=== PATIENT | male | born 1965 | race Caucasian/White ===

== ENCOUNTER 2017-10-02 13:57 | Day surgery (SDC) | payer SELFPAY ==
[2017-10-02] MEDS ORDERED: CEFAZOLIN/SWI 1gm 1 GM/10 ML SYR ONE (14:28)
[2017-10-02] MEDS ORDERED: TETANUS & DIPHTHERIA TOX,ADULT 0.5 ML VIAL ONE (14:28)
[2017-10-02] MEDS ORDERED: MEPERIDINE HCL 25 MG/0.5 ML ONE (14:28)
[2017-10-02] MEDS ORDERED: PROMETHAZINE 25 MG/ML VIAL ONE (14:28)
[2017-10-02 14:33] LABS: Absolute Lymphocytes (CBC) 2.8 K/uL (0.7-4.9); Absolute Monocytes 0.6 K/uL (0.1-1.3); Absolute Neutrophil 7.7 K/uL (1.8-8.0); Basophils % 0.4 % (0-1.3); Eosinophils % 0.4 % (0-4.4); Hematocrit 44.6 % (39.6-49.0); Lymphocytes % 24.9 % (15.3-44.8); MCH 31.8 pg (27.0-35.0); MCV 91.9 fL (80-100); MPV 7.6 fL (7.6-11.3); Monocytes % 5.7 % (3.3-12.3); RBC Red Blood Cell Count 4.86 M/uL (4.33-5.43)
[2017-10-02 14:35] LABS: Protime INR 0.99
--- NOTE | 2017-10-02 14:47 | RAD REPORT ---
EXAM DESCRIPTION: RAD - Hand Left 2 View - 10/02/2017 2:32 pm CLINICAL HISTORY: Trauma, traumatic amputation distal second digit COMPARISON: None. FINDINGS: Soft tissue amputation of the tip of the left second digit is present with small portion o f the tuft also amputated. No retained foreign body seen. Bandaging could potentially obscure a minut e foreign body. There is no dislocation or periosteal reaction noted. No foreign body or other soft t issue abnormality. IMPRESSION: Traumatic amputation of the soft tissues and a portion of the tuft second digit.
--- NOTE | 2017-10-02 14:48 | ER ---
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 Transition of care: patient was not received from another setting of care. Onset of symptoms was October 02, 2017. Risk Assessment: Do you want to hurt yourself or someone else? Patient reports no desire to harm self or others. Initial Sepsis Screen: Does the patient meet any 2 criteria? No. Patient's initial sepsis screen is negative. Does the patient have a suspected source of infection? No. Patient's initial sepsis screen is negative. Care prior to arrival: None. 14:13 Method Of Arrival: Ambulatory ph 14:13 Acuity: FRANCISCO 3 ph Historical: - Allergies: 14:16 No Known Allergies; ph - Home Meds: 14:16 None [Active]; ph - PMHx: 14:16 None; ph - Immunization history:: Adult Immunizations unknown. - Social history:: Smoking status: Patient uses tobacco products, smokes one-half pack cigarettes per day. - Ebola Screening: : No symptoms or risks identified at this time. Screenin:27 Abuse screen: Denies threats or abuse. Denies injuries from another. Nutritional ph screening: No deficits noted. Tuberculosis screening: No symptoms or risk factors identified. Fall Risk None identified. Assessment: 14:23 General: Appears in no apparent distress. uncomfortable, Behavior is calm, cooperative, ph appropriate for age. Pain: Complains of pain in palmar aspect of distal phalanx of left index finger. Neuro: Level of Consciousness is awake, alert, obeys commands, Oriented to person, place, time, situation. Cardiovascular: Capillary refill < 3 seconds Patient's skin is warm and dry. Respiratory: Airway is patent Respiratory effort is even, unlabored, Respiratory pattern is regular, symmetrical. GI: No signs and/or symptoms were reported involving the gastrointestinal system. Derm: Skin is healthy with good turgor, Skin is pink, warm \\T\\ dry. Musculoskeletal: Circulation, motion, and sensation intact. Range of motion: intact in all extremities. Injury Description: Amputation sustained to palmar aspect of distal phalanx of left index finger is complete. 14:43 Reassessment: Patient appears in no apparent distress at this time. Patient and/or ph family updated on plan of care and expected duration. Pain level reassessed. Patient is alert, oriented x 3, equal unlabored respirations, skin warm/dry/pink. Pt taken to surgery, accompanied by family. Vital Signs: 14:02 BP 154 / 100; Pulse 83; Resp 19; Temp 98.9(O); Pulse Ox 99% on R/A; Weight 79.38 kg; dh3 Height 5 ft. 6 in. (167.64 cm); Pain 10/10; 14:30 Pulse 88; Resp 18; Pulse Ox 100% ; sv 14:02 Body Mass Index 28.25 (79.38 kg, 167.64 cm) 3 ED Course: 14:01 Patient arrived in ED. em1 14:04 Jayce Thomas PA is PHCP. jr8 14:04 Gato Barboza MD is Attending Physician. jr8 14:12 Gregoria Watson, TAMI is Primary Nurse. ph 14:15 Triage completed. ph 14:20 Initial lab(s) drawn, by wv, sent to lab. Inserted saline lock: 20 gauge in right 3 antecubital area, using aseptic technique. Blood collected. 14:23 Arm band placed on. ph 14:27 Patient has correct armband on for positive identification. Bed in low position. Call ph light in reach. Side rails up X 1. Pulse ox on. NIBP on. 14:32 X-ray completed. Portable x-ray completed in exam room. Patient tolerated procedure jb2 well. 14:33 XRAY Hand LEFT 2 View In Process Unspecified. EDMS 14:45 No provider procedures requiring assistance completed. Patient admitted, IV remains in sv place. intact. 14:47 Ozzy Timmons MD is Hospitalizing Provider. jr8 Administered Medications: 14:28 Drug: Phenergan 12.5 mg Route: IVP; Site: right antecubital; sv 14:52 Follow up: Response: No adverse reaction ph 14:30 Drug: Demerol 25 mg Route: IVP; Site: right antecubital; sv 14:52 Follow up: Response: No adverse reaction ph 14:32 Drug: Ancef 1 grams Route: IVPB; Site: right antecubital; sv 14:51 Follow up: Response: No adverse reaction; IV Status: Completed infusion ph 14:36 Drug: Tetanus-Diphtheria Toxoid Adult 0.5 ml {Equity Director: [employer]. Exp: sv 11/28/2019. Lot #: [id number]. } Route: IM; Site: right deltoid; 14:52 Follow up: Response: No adverse reaction ph Outcome: 14:48 Decision to Hospitalize by Provider. jr8 14:48 Admitted to OR accompanied by tech, family with patient, via wheelchair, with chart. ph 14:48 Condition: stable 14:48 Instructed on the need for admit. 14:52 Patient left the ED. ph Signatures: Dispatcher [employer] Samantha Figueroa RN RN Glen Mckeon Eric em1 Roszak, Josh, PA PA jr8 Gregoria Watson RN RN So Kline replaced by [facility]
--- NOTE | 2017-10-02 14:49 | EDPHYS ---
Physician Documentation [facility] Name: Ozzy Issa Age: 52 yrs Sex: Male : 1965 Arrival Date: 10/02/2017 Time: 14:01 Bed 3 Private MD: ED Physician Gato Barboza HPI: 10/02 14:32 This 52 yrs old Male presents to ER via Ambulatory with complaints of jr8 Amputation of digit. 14:32 The patient or guardian reports a laceration. The complaints affect the Distal aspect jr8 2nd digit left hand. Context: The problem was sustained outdoors, resulted from work accident. Onset: The symptoms/episode began/occurred acutely, today. Modifying factors: The symptoms are alleviated by nothing, the symptoms are aggravated by movement. Associated signs and symptoms: The patient has no apparent associated signs or symptoms. Severity of symptoms: At their worst the symptoms were moderate, in the emergency department the symptoms are unchanged. The patient has not experienced similar symptoms in the past. The patient has not recently seen a physician. Patient stated that he was working with table saw to [employer] quarter round. Stated that his finger was too close and amputated his finger. Patient has approximately 45 degree amputation of pad and distal digit noted to left hand 2nd digit . Historical: - Allergies: 14:16 No Known Allergies; ph - Home Meds: 14:16 None [Active]; ph - PMHx: 14:16 None; ph - Immunization history:: Adult Immunizations unknown. - Social history:: Smoking status: Patient uses tobacco products, smokes one-half pack cigarettes per day. - Ebola Screening: : No symptoms or risks identified at this time. ROS: 14:32 Eyes: Negative for injury, pain, redness, and discharge, ENT: Negative for injury, jr8 pain, and discharge, Neck: Negative for injury, pain, and swelling, Cardiovascular: Negative for chest pain, palpitations, and edema, Respiratory: Negative for shortness of breath, cough, wheezing, and pleuritic chest pain, Abdomen/GI: Negative for abdominal pain, nausea, vomiting, diarrhea, and constipation, Back: Negative for injury and pain, Skin: Negative for injury, rash, and discoloration, Neuro: Negative for headache, weakness, numbness, tingling, and seizure. 14:32 MS/extremity: Positive for laceration, pain, of the left hand. Exam: 14:32 Cardiovascular: Regular rate and rhythm with a normal S1 and S2. No gallops, murmurs, jr8 or rubs. Normal PMI, no JVD. No pulse deficits. Respiratory: Lungs have equal breath sounds bilaterally, clear to auscultation and percussion. No rales, rhonchi or wheezes noted. No increased work of breathing, no retractions or nasal flaring. Skin: Warm, dry with normal turgor. Normal color with no rashes, no lesions, and no evidence of cellulitis. Neuro: Awake and alert, GCS 15, oriented to person, place, time, and situation. Cranial nerves II-XII grossly intact. Motor strength 5/5 in all extremities. Sensory grossly intact. Cerebellar exam normal. Normal gait. 14:32 Musculoskeletal/extremity: Extremities: grossly normal except: noted in the 2nd digit left hand: Patient has 45 degree laceration/amputation of distal 2nd digit left hand. Part of nail still intact, ROM: intact in all extremities, Circulation is intact in all extremities. Sensation intact. Vital Signs: 14:02 BP 154 / 100; Pulse 83; Resp 19; Temp 98.9(O); Pulse Ox 99% on R/A; Weight 79.38 kg; dh3 Height 5 ft. 6 in. (167.64 cm); Pain 10/10; 14:30 Pulse 88; Resp 18; Pulse Ox 100% ; sv 14:02 Body Mass Index 28.25 (79.38 kg, 167.64 cm) dh3 MDM: 14:04 Patient medically screened. 8 14:05 ED course: Dr. Timmons consulted and will come in and see patient . jr8 14:46 Data reviewed: vital signs, nurses notes, lab test result(s), radiologic studies, plain jr8 films, and as a result, I will admit patient. Data interpreted: Pulse oximetry: on room air is 100 %. Interpretation: normal. Counseling: I had a detailed discussion with the patient and/or guardian regarding: the historical points, exam findings, and any diagnostic results supporting the discharge/admit diagnosis, lab results, radiology results, the need for further work-up and treatment in the hospital. 10/02 14:05 Order name: CBC with Diff jr8 10/02 14: Order name: Basic Metabolic Panel 10/02 14:05 Order name: PT-INR 10/02 14:06 Order name: XRAY Hand LEFT 2 View; Complete Time: 14:48 10/02 14:05 Order name: IV; Complete Time: 14:21 10/02 14:05 Order name: NPO; Complete Time: 14:21 Administered Medications: 14:28 Drug: Phenergan 12.5 mg Route: IVP; Site: right antecubital; sv 14:52 Follow up: Response: No adverse reaction ph 14:30 Drug: Demerol 25 mg Route: IVP; Site: right antecubital; sv 14:52 Follow up: Response: No adverse reaction ph 14:32 Drug: Ancef 1 grams Route: IVPB; Site: right antecubital; sv 14:51 Follow up: Response: No adverse reaction; IV Status: Completed infusion ph 14:36 Drug: Tetanus-Diphtheria Toxoid Adult 0.5 ml {Broker In Charge: [employer]. Exp: sv 11/28/2019. Lot #: [id number]. } Route: IM; Site: right deltoid; 14:52 Follow up: Response: No adverse reaction ph Disposition: 15:06 Co-signature as Attending Physician, Gato Barboza MD. rn Disposition: 10/02/17 14:48 Hospitalization ordered by Ozzy Timmons for Observation. Preliminary diagnosis is Complete traumatic amputation distal phalynx 2nd digit left hand. - Bed requested for Operating Room. - Status is Observation. ph - Condition is Stable. - Problem is new. - Symptoms have improved. UTI on Admission? No Signatures: Dispatcher [employer] Samantha Figueroa RN RN Gato Simmons MD MD rn Roszak, Josh, PA PA jr8 Gregoria Watson RN RN ph Corrections: (The following items were deleted from the chart) 14:52 14:48 Hospitalization Ordered by Ozzy Timmons MD for Observation. Preliminary ph diagnosis is Complete traumatic amputation distal phalynx 2nd digit left hand. Bed requested for Operating Room. Status is Observation. Condition is Stable. Problem is new. Symptoms have improved. UTI on Admission? No. jr8
[2017-10-02 14:55] LABS: Potassium 3.6 mmol/L (3.5-5.1)
[2017-10-02] MEDS ORDERED: Ringers Lactate 1,000 ML IV ONE (15:02)
[2017-10-02] MEDS ORDERED: LIDOCAINE 2% MPF 5 ML VIAL ONE (15:37)
[2017-10-02] MEDS ORDERED: PROPOFOL 200 MG/20 ML VIAL IV ONE (15:37)
[2017-10-02] MEDS ORDERED: FENTANYL CITR 100 MCG/2 ML ONE (15:37)
[2017-10-02] MEDS ORDERED: ONDANSETRON HCL 40 MG/20 ML VIAL ONE ×2 (15:59→16:00)
[2017-10-02] MEDS ORDERED: KETOROLAC 30 MG/ML INJ ONE (16:01)
[2017-10-02] MEDS ORDERED: DEXAMETHASONE 10 MG/ML VIAL ONE (16:01)
[2017-10-02] MEDS ORDERED: BUPIVACAINE 0.5% PF 10 ML VIAL ONE (16:20)
--- NOTE | 2017-10-02 16:57 | OP ---
Surgeon: Ozzy Timmons MD Inspection Supervisor: Dr. Francis. Preoperative Diagnosis: Amputated tip of the left index finger. Postoperative Diagnosis: Amputated tip of the left index finger. Procedure Performed: Debridement of skin and subcutaneous tissue, bone, flap closure. Anesthesia: General. Procedure In Detail: After satisfactory induction of general anesthesia, the left hand was prepped w ith Betadine scrub, Betadine paint, dry sterile drapes applied in the usual manner. The arm was elev ated with an Esmarch, tourniquet inflated to 250 mmHg. Hand was placed on [place] table. Scalpel wa s used to excise nail bed and then the bone was squared up with a bone cutter and then filed. Wound was jet lavaged and irrigated with about 500 cc of Betadine solution. Radial ulnar V-Y flaps outline d, advanced, and closed with 4-0 Prolene. Tourniquet released. Dressed with Xeroform and 2-inch Kli ng. The patient tolerated the procedure well and returned to recovery. MABEL/MORRO Voice ID: [id number] Report ID: [id number]
[2017-10-02] MEDS ORDERED: CODEINE 30MG/APAP 300MG TAB ONE (17:15)
[2017-10-02 18:04] VITALS: BP 134/76; TEMP 97.4; O2SAT 97
== END 2017-10-02 17:46 | disposition home or self-care (01) ==
LOC: ER 13:57 → OR 14:47 → ER 17:46 → OR 17:46
PROVIDERS: ATTEND Specialist
PROC: 0HXGXZZ Transfer Left Hand Skin, External Approach (ICD-10-PCS; principal; 2017-10-02 15:30)
DX: S68.121A Partial traumatic metacarpophalangeal amputation of left index finger, initial encounter (principal); W31.2XXA Contact with powered woodworking and forming machines, initial encounter; Y93.9 Activity, unspecified; Y92.69 Other specified industrial and construction area as the place of occurrence of the external cause; Y99.0 Civilian activity done for income or pay; Z23 Encounter for immunization; F17.210 Nicotine dependence, cigarettes, uncomplicated
CPT/HCPCS: 36415; 80048; 85025; 85610; 88304; 88311; 90714; 96365; 96375; 99285; J0690; J1100; J2175; J2405; J2550; J3010

== ENCOUNTER 2017-10-03 09:27 | Emergency (ER) | payer SELFPAY ==
--- NOTE | 2017-10-03 10:18 | ER ---
Nurse's Notes [facility] Name: Ozzy Issa Age: 52 yrs Sex: Male : 1965 Arrival Date: 10/03/2017 Time: 09:31 Bed 11 Private MD: None, None Diagnosis: Pain in hand and fingers Presentation: 10/03 09:49 Presenting complaint: Patient states: had surgery in left index finger yesterday by Dr. jane Timmons, was prescribed tylenol with codeine but would prefer a non-narcotic pain reliever bc he's a recovering alcoholic , went to Dr. Timmons's office but it was closed. Transition of care: patient was not received from another setting of care. Onset of symptoms was October 03, 2017. Risk Assessment: Do you want to hurt yourself or someone else? Patient reports no desire to harm self or others. Initial Sepsis Screen: Does the patient meet any 2 criteria? No. Patient's initial sepsis screen is negative. Does the patient have a suspected source of infection? No. Patient's initial sepsis screen is negative. Care prior to arrival: None. 09:49 Method Of Arrival: Ambulatory iw 09:49 Acuity: FRANCISCO 5 iw Triage Assessment: 11:17 General: Appears in no apparent distress. Behavior is calm, cooperative. iw Historical: - Allergies: 09:51 NKA; iw - Immunization history:: Adult Immunizations up to date. - Ebola Screening: : Patient negative for fever greater than or equal to 101.5 degrees Fahrenheit, and additional compatible Ebola Virus Disease symptoms Patient denies exposure to infectious person Patient denies travel to an Ebola-affected area in the 21 days before illness onset No symptoms or risks identified at this time. - Social history:: Smoking status: . Screenin:52 Abuse screen: Denies threats or abuse. Denies injuries from another. Nutritional iw screening: No deficits noted. Tuberculosis screening: No symptoms or risk factors identified. Fall Risk None identified. Assessment: 10:00 General: Appears in no apparent distress. Behavior is calm, cooperative. Pain: Denies iw pain. Neuro: Level of Consciousness is awake, alert, obeys commands, Oriented to person, place, time, Moves all extremities. Full function. Cardiovascular: Patient's skin is warm and dry. Musculoskeletal: Range of motion: limited in DIP of left index finger, PIP of left index finger and MCP of left index finger Swelling present in dorsal aspect of distal phalanx of left index finger and dorsal aspect of proximal phalanx of left index finger. 11:00 Respiratory: Airway is patent. Derm: Skin amputation noted to left index finder, iw sutures in place, mild bleeding noted, Xeroform dressing in place, wound cleaned and dressing changed. Vital Signs: 09:52 BP 122 / 90; Pulse 98; Resp 18 S; Temp 99.3; Pulse Ox 98% on R/A; Weight 72.57 kg; iw Height 5 ft. 8 in. (172.72 cm); Pain 0/10; 09:52 Body Mass Index 24.33 (72.57 kg, 172.72 cm) iw ED Course: 09:31 Patient arrived in ED. mr 09:31 None, None is Private Physician. mr 09:49 Suma García, RN is Primary Nurse. iw 09:51 Triage completed. iw 09:58 Marilyn Garcia FNP-C [facility]. snw 09:58 Gato Barboza MD is Attending Physician. snw 11:00 Patient did not have IV access during this emergency room visit. Wound care: to iw surgical repair of amputation of left index finger located on dorsal aspect of distal phalanx of left index finger was cleaned with Hibiclens, dressed with 4X4s, Kerlix, Vaseline gauze, Patient tolerated well. 11:00 Patient has correct armband on for positive identification. iw 11:17 No provider procedures requiring assistance completed. iw 11:17 Arm band placed on. iw Administered Medications: 10:55 Drug: TORadol 60 mg Route: IM; Site: left deltoid; iw 11:05 Follow up: Response: No adverse reaction iw Outcome: 10:18 Discharge ordered by . snw 11:14 Discharged to home ambulatory. iw 11:14 Condition: good 11:14 Discharge instructions given to patient, Instructed on discharge instructions, follow up and referral plans. Demonstrated understanding of wound care. 11:17 Patient left the ED. iw Signatures: Marilyn Garcia FNP-C FNP-Radha Wyatt mr Suma García, RN RN iw
--- NOTE | 2017-10-03 10:19 | EDPHYS ---
Physician Documentation [facility] Name: Ozzy Issa Age: 52 yrs Sex: Male : 1965 Arrival Date: 10/03/2017 Time: 09:31 Bed 11 Private MD: None, None ED Physician Gato Barboza HPI: 10/03 10:33 This 52 yrs old Male presents to ER via Ambulatory with complaints of RX. snw 10:33 The patient or guardian reports pain. The complaints affect the dorsal aspect of distal snw phalanx of left index finger and left index fingernail. Context: The problem was sustained at home, resulted from distal fingertip amputation. Onset: The symptoms/episode began/occurred suddenly, yesterday. Associated signs and symptoms: The patient has no apparent associated signs or symptoms. Severity of symptoms: At their worst the symptoms were moderate. The patient has not experienced similar symptoms in the past. Surgical repair per Dr. Timmnos yest. Request pain medication that is non-narcotic as he is recovering from ETOH addiction. Historical: - Allergies: 09:51 NKA; iw - Immunization history:: Adult Immunizations up to date. - Ebola Screening: : Patient negative for fever greater than or equal to 101.5 degrees Fahrenheit, and additional compatible Ebola Virus Disease symptoms Patient denies exposure to infectious person Patient denies travel to an Ebola-affected area in the 21 days before illness onset No symptoms or risks identified at this time. - Social history:: Smoking status: . ROS: 10:31 Constitutional: Negative for fever, chills, and weight loss, Eyes: Negative for injury, snw pain, redness, and discharge, ENT: Negative for injury, pain, and discharge, Neck: Negative for injury, pain, and swelling, Cardiovascular: Negative for chest pain, palpitations, and edema, Respiratory: Negative for shortness of breath, cough, wheezing, and pleuritic chest pain, Abdomen/GI: Negative for abdominal pain, nausea, vomiting, diarrhea, and constipation, Back: Negative for injury and pain, : Negative for injury, bleeding, discharge, and swelling, Skin: Negative for injury, rash, and discoloration, Neuro: Negative for headache, weakness, numbness, tingling, and seizure. 10:31 MS/extremity: Positive for injury or acute deformity, recent surgical revision of fingertip amputation, requests non-narcotic pain medication. Exam: 10:26 Constitutional: This is a well developed, well nourished patient who is awake, alert, snw and in no acute distress. Head/Face: Normocephalic, atraumatic. Eyes: Pupils equal round and reactive to light, extra-ocular motions intact. Lids and lashes normal. Conjunctiva and sclera are non-icteric and not injected. Cornea within normal limits. Periorbital areas with no swelling, redness, or edema. ENT: Nares patent. No nasal discharge, no septal abnormalities noted. Tympanic membranes are normal and external auditory canals are clear. Oropharynx with no redness, swelling, or masses, exudates, or evidence of obstruction, uvula midline. Mucous membranes moist. Neck: Trachea midline, no thyromegaly or masses palpated, and no cervical lymphadenopathy. Supple, full range of motion without nuchal rigidity, or vertebral point tenderness. No Meningismus. Chest/axilla: Normal chest wall appearance and motion. Nontender with no deformity. No lesions are appreciated. Cardiovascular: Regular rate and rhythm with a normal S1 and S2. No gallops, murmurs, or rubs. Normal PMI, no JVD. No pulse deficits. Respiratory: Lungs have equal breath sounds bilaterally, clear to auscultation and percussion. No rales, rhonchi or wheezes noted. No increased work of breathing, no retractions or nasal flaring. Abdomen/GI: Soft, non-tender, with normal bowel sounds. No distension or tympany. No guarding or rebound. No evidence of tenderness throughout. Back: No spinal tenderness. No costovertebral tenderness. Full range of motion. Skin: Warm, dry with normal turgor. Normal color with no rashes, no lesions, and no evidence of cellulitis. Neuro: Awake and alert, GCS 15, oriented to person, place, time, and situation. Cranial nerves II-XII grossly intact. Motor strength 5/5 in all extremities. Sensory grossly intact. Cerebellar exam normal. Normal gait. 10:26 Musculoskeletal/extremity: Extremities: grossly normal except: pain, Circulation is intact in all extremities. the distal left index finger amp yesterday, bandage intact Sensation intact. Vital Signs: 09:52 BP 122 / 90; Pulse 98; Resp 18 S; Temp 99.3; Pulse Ox 98% on R/A; Weight 72.57 kg; iw Height 5 ft. 8 in. (172.72 cm); Pain 0/10; 09:52 Body Mass Index 24.33 (72.57 kg, 172.72 cm) iw MDM: 09:59 Patient medically screened. snw 10:28 Data reviewed: vital signs, nurses notes. Counseling: I had a detailed discussion with snw the patient and/or guardian regarding: the historical points, exam findings, and any diagnostic results supporting the discharge/admit diagnosis, to return to the emergency department if symptoms worsen or persist or if there are any questions or concerns that arise at home. Special discussion: I have referred the patient to see his PCP for further evaluation of high blood pressure. Based on the history and exam findings, there is no indication for further emergent testing or inpatient evaluation. I discussed with the patient/guardian the need to see the hand specialist for further evaluation of the symptoms. I discussed with the patient/guardian the need to see the primary care provider for further evaluation of the symptoms. ED course: pt without ETOH x 2 years, does not want to jeopardize recovery and requests non-narcotic pain medication. 10/03 10:17 Order name: Wound Care; Complete Time: 11:05 snw 10/03 10:17 Order name: Wound dressing; Complete Time: 11:05 snw Administered Medications: 10:55 Drug: TORadol 60 mg Route: IM; Site: left deltoid; iw 11:05 Follow up: Response: No adverse reaction iw Disposition: 15:27 Co-signature as Attending Physician, Gato Barboza MD. rn Disposition: 10/03/17 10:18 Discharged to Home. Impression: Pain in hand and fingers. - Condition is Stable. - Discharge Instructions: Crush Injury, Fingers or Toes. - Prescriptions for Diclofenac Sodium 75 mg Oral Tablet Sustained Release - take 1 tablet by ORAL route 2 times per day; 30 tablet. - Medication Reconciliation Form, Thank You Letter, Antibiotic Education, Prescription Opioid Use form. - Follow up: Private Physician; When: 2 - 3 days; Reason: Recheck today's complaints, Continuance of care, Re-evaluation by your physician. Follow up: Emergency Department; When: As needed; Reason: Worsening of condition. - Notes: Please continue antibiotics Signatures: Marilyn Garcia SCRAPER HAND-C SCRAPER HAND-Csnw Suma García RN RN iw Gato Barboza MD MD furnace keeper: (The following items were deleted from the chart) 11:17 10:18 10/03/2017 10:18 Discharged to Home. Impression: Pain in hand and fingers. iw Condition is Stable. Forms are Medication Reconciliation Form, Thank You Letter, Antibiotic Education, Prescription Opioid Use. Follow up: Private Physician; When: 2 - 3 days; Reason: Recheck today's complaints, Continuance of care, Re-evaluation by your physician. Follow up: Emergency Department; When: As needed; Reason: Worsening of condition. snw
[2017-10-03] MEDS ORDERED: KETOROLAC 30 MG/ML INJ ONE (10:51)
[2017-10-03 11:31] VITALS: BP 122/90; TEMP 99.3; O2SAT 98
== END 2017-10-03 11:17 | disposition home or self-care (01) ==
LOC: ER 09:27
DX: M79.645 Pain in left finger(s) (principal)
CPT/HCPCS: 96372; 99283

== ENCOUNTER 2018-10-02 16:31 | Emergency (ER) | payer SELFPAY ==
[2018-10-02 17:26] LABS: Urine Blood TRACE (NEG); Urine Glucose NEGATIVE (NEG); Urine Protein NEGATIVE (NEG); Urine Specific Gravity 1.025 (1.005-1.030); Urine pH 5.5 (5.0-7.0)
[2018-10-02] MEDS ORDERED: NA CHLORIDE 0.9% 1,000 ML ONE (17:38)
[2018-10-02] MEDS ORDERED: KETOROLAC 30 MG/ML INJ ONE (17:38)
[2018-10-02 17:39] LABS: Urine Bacteria <20 /HPF (NONE SEEN); Urine Culture Reflex Order NOT NEEDED; Urine RBC NONE SEEN /HPF (NONE SEEN)
[2018-10-02 17:43] LABS: Absolute Lymphocytes (CBC) 3.1 K/uL (0.7-4.9); Basophils % 1.3 % (0-1.3); Eosinophils % 1.4 % (0-4.4); Hematocrit 44.2 % (39.6-49.0); Lymphocytes % 36.3 % (15.3-44.8); MPV 7.4 fL (7.6-11.3); Monocytes % 8.2 % (3.3-12.3); RBC Red Blood Cell Count 4.84 M/uL (4.33-5.43)
[2018-10-02 18:00] LABS: Bilirubin Direct 0.1 mg/dL (0-0.2); Bilirubin Total 0.3 mg/dL (0.2-1.0); Potassium 4.1 mmol/L (3.5-5.1); Protein, Total 7.6 g/dL (6.4-8.2)
--- NOTE | 2018-10-02 18:42 | RAD REPORT ---
EXAM DESCRIPTION: CT - Stone Protocol - 10/02/2018 6:30 pm CLINICAL HISTORY: Left flank pain COMPARISON: CT study February 2015 TECHNIQUE: Axial 5 mm thick images were obtained without oral or IV contrast. The [id number] span s the entirety of the system partially obscuring uppermost abdomen and lung bases. All CT scans are performed using dose optimization technique as appropriate and may include automated exposure control or mA/KV adjustment according to patient size. FINDINGS: No hydronephrosis is present. In the distal left ureter a few cm from the bladder there is a questionable 1 millimeter calcification. No right-sided hydronephrosis. No other possible obstruct ing or nonobstructing calculus seen. No suspicious renal masses. Isodense masses and pyelonephritis a re not excluded on a stone protocol CT scan. No urinary bladder suspicious finding. No significant ad renal finding. There is questionable minimal edema of the left kidney. Imaged portions of the liver, spleen and pancreas show no suspicious findings on non-contrast imaging . Gallbladder is contracted. No biliary tree dilatation. No suspicious bowel findings. No mass or bulky lymphadenopathy. Small fat only inguinal hernias are present. No free air, free flui d or inflammatory stranding. No significant bony abnormality. IMPRESSION: No hydronephrosis is present. There is a questionable 1 millimeter distal left ureteral calculus. No other obstructing or nonobstructing calculi. Isodense masses and pyelonephritis are not excluded on stone protocol technique.
--- NOTE | 2018-10-02 19:07 | EDPHYS ---
Physician Documentation [facility] Name: Ozzy Issa Age: 53 yrs Sex: Male : 1965 Arrival Date: 10/02/2018 Time: 16:33 Bed 19 Private MD: ED Physician Juan Sandhu HPI: 10/02 17:15 This 53 yrs old Male presents to ER via Ambulatory with complaints of Flank cp Pain. 17:15 The patient complains of pain in the left mid back. The pain radiates to the abdomen. cp Onset: The symptoms/episode began/occurred 4 day(s) ago. Modifying factors: the symptoms are aggravated by nothing. Associated signs and symptoms: Pertinent negatives: diarrhea, dysuria, fever, urinary frequency, pain radiating to the lower extremities, vomiting. Severity of pain: in the emergency department the pain is unchanged despite home interventions. Historical: - Allergies: 16:54 NKA; hb - Home Meds: 16:54 None [Active]; hb - PMHx: 16:54 None; hb - PSHx: 16:54 Hernia repair; hb - Immunization history:: Adult Immunizations up to date. - Social history:: Smoking status: Patient uses tobacco products, smokes one pack cigarettes per day. - Ebola Screening: : No symptoms or risks identified at this time. ROS: 17:20 Constitutional: Negative for body aches, chills, fever, poor PO intake. cp 17:20 Eyes: Negative for injury, pain, redness, and discharge. cp 17:20 ENT: Negative for drainage from ear(s), ear pain, sore throat, difficulty swallowing, difficulty handling secretions. 17:20 Cardiovascular: Negative for chest pain, palpitations. 17:20 Respiratory: Negative for cough, shortness of breath, wheezing. 17:20 Abdomen/GI: Negative for vomiting, diarrhea, constipation, black/tarry stool, rectal bleeding. 17:20 Back: Positive for flank pain, on the left. 17:20 : Negative for urinary symptoms, hematuria, testicular pain 17:20 Skin: Negative for cellulitis, rash. 17:20 Neuro: Negative for altered mental status, dizziness, headache, weakness. 17:20 All other systems are negative. Exam: 17:30 Constitutional: The patient appears in no acute distress, alert, awake, non-toxic, well cp developed, well nourished. 17:30 Head/Face: Normocephalic, atraumatic. cp 17:30 Eyes: Periorbital structures: appear normal, Conjunctiva: normal, no exudate, no injection, Sclera: no appreciated abnormality, Lids and lashes: appear normal, bilaterally. 17:30 ENT: External ear(s): are unremarkable, Nose: is normal, Mouth: Lips: moist, Oral mucosa: pink and intact, moist, Posterior pharynx: is normal, airway is patent, no erythema, no exudate. 17:30 Chest/axilla: Inspection: normal, Palpation: is normal, no crepitus, no tenderness. 17:30 Cardiovascular: Rate: normal, Rhythm: regular, JVD: is not appreciated. 17:30 Respiratory: the patient does not display signs of respiratory distress, Respirations: normal, no use of accessory muscles, no retractions, no splinting, no tachypnea, labored breathing, is not present, Breath sounds: are clear throughout, no decreased breath sounds, no stridor, no wheezing. 17:30 Abdomen/GI: Inspection: abdomen appears normal, Bowel sounds: active, all quadrants, Palpation: soft, in all quadrants, mild abdominal tenderness, in the left upper quadrant and left lower quadrant, rebound tenderness, is not appreciated, voluntary guarding, is not appreciated, involuntary guarding, is not appreciated. 17:30 Back: pain, that is mild, of the left mid back, ROM is normal. 17:30 Skin: no rash present. 17:30 Neuro: Orientation: to person, place \T\ time. Mentation: is normal, Motor: moves all fours, strength is normal. Vital Signs: 16:53 BP 120 / 82; Pulse 75; Resp 16; Temp 98.7; Pulse Ox 99% on R/A; Weight 77.11 kg; Height hb 5 ft. 6 in. (167.64 cm); Pain 8/10; 18:20 BP 154 / 80; Pulse 99; Resp 18; Pulse Ox 99% on R/A; Pain 2/10; em 16:53 Body Mass Index 27.44 (77.11 kg, 167.64 cm) hb MDM: 16:58 Patient medically screened. reina 18:00 Differential diagnosis: nephrolithiasis, pyelonephritis, UTI, diverticulitis, cp pancreatitis, ruptured AAA, dissecting AAA. 19:05 Data reviewed: vital signs, nurses notes, lab test result(s), radiologic studies, CT cp scan. 19:05 Counseling: I had a detailed discussion with the patient and/or guardian regarding: the cp historical points, exam findings, and any diagnostic results supporting the discharge/admit diagnosis, lab results, radiology results, to return to the emergency department if symptoms worsen or persist or if there are any questions or concerns that arise at home. Response to treatment: the patient's symptoms have markedly improved after treatment, and as a result, I will discharge patient. 10/02 17:10 Order name: Urine Dipstick--Ancillary (enter results); Complete Time: 18:18 dh3 10/02 17:15 Order name: Urine Microscopic Only; Complete Time: 18:18 cp 10/02 17:15 Order name: Basic Metabolic Panel; Complete Time: 18:18 cp 10/02 17:15 Order name: CBC with Diff; Complete Time: 18:18 cp 10/02 17:15 Order name: Creatinine for Radiology; Complete Time: 18:18 cp 10/02 17:15 Order name: Hepatic Function; Complete Time: 18:18 cp 10/02 17:15 Order name: Lipase; Complete Time: 18:18 cp 10/02 17:15 Order name: IV Saline Lock; Complete Time: 18:00 cp 10/02 17:15 Order name: Labs collected and sent; Complete Time: 18:00 cp 10/02 18:18 Order name: CT Stone Protocol; Complete Time: 18:52 cp 10/02 18:54 Order name: PO challenge; Complete Time: 19:12 cp Administered Medications: 17:35 Drug: NS 0.9% 1000 ml Route: IV; Rate: 1 bolus; Site: right forearm; em 19:12 Follow up: IV Status: Completed infusion; IV Intake: 1000ml ak1 17:35 Drug: TORadol 30 mg Route: IVP; Site: right forearm; iw 19:12 Follow up: Response: No adverse reaction; Pain is decreased ak1 19:12 Drug: Flomax 0.4 mg Route: PO; ak1 19:13 Follow up: Response: No adverse reaction; Medication administered at discharge. ak1 Disposition: 10/02/18 19:06 Discharged to Home. Impression: Calculus of ureter - left. - Condition is Stable. - Discharge Instructions: Kidney Stones. - Prescriptions for Tylenol- Codeine #3 300-30 mg Oral Tablet - take 2 tablets by ORAL route every 6 hours As needed; 20 tablet. Zofran 4 mg Oral Tablet - take 1 tablet by ORAL route every 12 hours As needed; 20 tablet. Flomax 0.4 mg Oral Capsule, Sust. Release 24 hr - take 1 capsule by ORAL route once daily As needed 1/2 hour following the same meal each day; 5 capsule. - Medication Reconciliation Form, Thank You Letter, Antibiotic Education, Prescription Opioid Use form. - Follow up: John Edwards MD; When: 2 - 3 days; Reason: pain continues. - Problem is new. - Symptoms have improved. Addendum: 10/07/2018 16:40 Co-signature as Attending Physician, Juan Sandhu MD I agree with the assessment and c villeda plan of care. Signatures: Dispatcher [employer] EDTana Yeh RN RN aa1 Juan Sandhu MD MD cha Munoz, Edgar, RACE RELATIONS PROFESSOR RACE RELATIONS PROFESSOR em Suma García RN RN Marnie Rubi RN RN ak1 Juan Mayorga PA PA cp Bee Odom, RN RN Corrections: (The following items were deleted from the chart) 10/02 19:26 19:06 10/02/2018 19:06 Discharged to Home. Impression: Calculus of ureter - left. aa1 Condition is Stable. Forms are Medication Reconciliation Form, Thank You Letter, Antibiotic Education, Prescription Opioid Use. Follow up: John Edwards; When: 2 - 3 days; Reason: pain continues. Problem is new. Symptoms have improved. cp
--- NOTE | 2018-10-02 19:07 | ER ---
Nurse's Notes [facility] Name: Ozzy Issa Age: 53 yrs Sex: Male : 1965 Arrival Date: 10/02/2018 Time: 16:33 Bed 19 Private MD: Diagnosis: Calculus of ureter-left Presentation: 10/02 16:52 Presenting complaint: Left flank pain x 4 days. Denies fever/urinary s/s. Transition of hb care: patient was not received from another setting of care. Onset of symptoms was September 28, 2018. Risk Assessment: Do you want to hurt yourself or someone else? Patient reports no desire to harm self or others. Care prior to arrival: None. 16:52 Method Of Arrival: Ambulatory hb 16:52 Acuity: FRANCISCO 3 hb 17:08 Initial Sepsis Screen: Does the patient meet any 2 criteria? No. Patient's initial em sepsis screen is negative. Does the patient have a suspected source of infection? No. Patient's initial sepsis screen is negative. Historical: - Allergies: 16:54 NKA; hb - Home Meds: 16:54 None [Active]; hb - PMHx: 16:54 None; hb - PSHx: 16:54 Hernia repair; hb - Immunization history:: Adult Immunizations up to date. - Social history:: Smoking status: Patient uses tobacco products, smokes one pack cigarettes per day. - Ebola Screening: : No symptoms or risks identified at this time. Screenin:56 Abuse screen: Denies threats or abuse. Nutritional screening: No deficits noted. em Tuberculosis screening: No symptoms or risk factors identified. Fall Risk None identified. Assessment: 17:08 General: Appears in no apparent distress. comfortable, Behavior is calm, cooperative, em Denies fever. Pain: Complains of pain in right mid back Pain currently is 8 out of 10 on a pain scale. Neuro: Level of Consciousness is awake, alert, obeys commands, Oriented to person, place, time, situation, Appropriate for age. Cardiovascular: Capillary refill < 3 seconds Patient's skin is warm and dry. Respiratory: Airway is patent Respiratory effort is even, unlabored, Respiratory pattern is regular, symmetrical. GI: Abdomen is flat, Bowel sounds present X 4 quads. Reports nausea, Patient currently denies vomiting. : Urine is clear, Denies burning with urination, pain. Derm: Skin is intact, is healthy with good turgor, Skin is pink, warm \T\ dry. Musculoskeletal: Capillary refill < 3 seconds, Range of motion: intact in all extremities. 17:30 Reassessment: Patient appears in no apparent distress at this time. I agree with above iw assessment by Ehsan Jesus LVN. 18:20 Reassessment: Patient appears in no apparent distress at this time. Patient and/or em family updated on plan of care and expected duration. Pain level reassessed. Patient is alert, oriented x 3, equal unlabored respirations, skin warm/dry/pink. rates pain 2/10 Patient states feeling better. 19:13 General: Appears in no apparent distress. comfortable, Behavior is calm, cooperative. ak1 Pain: Denies pain. Neuro: No deficits noted. Cardiovascular: No deficits noted. Respiratory: No deficits noted. GI: No signs and/or symptoms were reported involving the gastrointestinal system. : Denies burning with urination. EENT: No deficits noted. Derm: No signs and/or symptoms reported regarding the dermatologic system. Musculoskeletal: No signs and/or symptoms reported regarding the musculoskeletal system. 19:25 Reassessment: Patient appears in no apparent distress at this time. Patient is alert, aa1 oriented x 3, equal unlabored respirations, skin warm/dry/pink. Discussed d/c \T\ f/u instructions with pt \T\ spouse; denies questions or concerns at this time Patient states feeling better. Vital Signs: 16:53 BP 120 / 82; Pulse 75; Resp 16; Temp 98.7; Pulse Ox 99% on R/A; Weight 77.11 kg; Height hb 5 ft. 6 in. (167.64 cm); Pain 8/10; 18:20 BP 154 / 80; Pulse 99; Resp 18; Pulse Ox 99% on R/A; Pain 2/10; em 16:53 Body Mass Index 27.44 (77.11 kg, 167.64 cm) hb ED Course: 16:33 Patient arrived in ED. rg4 16:53 Triage completed. hb 16:54 Arm band placed on right wrist. hb 16:55 [facility]. cp 16:55 Juan Sandhu MD is Attending Physician. cp 16:56 Ehsan Jesus LVN is Primary Nurse. em 16:56 Patient has correct armband on for positive identification. Call light in reach. Side em rails up X2. Pulse ox on. NIBP on. 17:05 Urine collected: clean catch specimen, cloudy, juan jose colored. jb1 18:30 CT Stone Protocol In Process Unspecified. EDMS 19:05 John Edwards MD is Referral Physician. cp 19:14 No provider procedures requiring assistance completed. ak1 19:25 IV discontinued, intact, bleeding controlled, No redness/swelling at site. Pressure aa1 dressing applied. Administered Medications: 17:35 Drug: NS 0.9% 1000 ml Route: IV; Rate: 1 bolus; Site: right forearm; em 19:12 Follow up: IV Status: Completed infusion; IV Intake: 1000ml ak1 17:35 Drug: TORadol 30 mg Route: IVP; Site: right forearm; iw 19:12 Follow up: Response: No adverse reaction; Pain is decreased ak1 19:12 Drug: Flomax 0.4 mg Route: PO; ak1 19:13 Follow up: Response: No adverse reaction; Medication administered at discharge. ak1 Intake: 19:12 IV: 1000ml; Total: 1000ml. ak1 Outcome: 19:06 Discharge ordered by MD. cp 19:25 Discharged to home ambulatory, with significant other. aa1 19:25 Condition: good 19:25 Discharge instructions given to patient, significant other, Instructed on discharge instructions, follow up and referral plans. medication usage, Demonstrated understanding of instructions, follow-up care, medications, Prescriptions given X 3. 19:26 Patient left the ED. aa1 Signatures: Dispatcher [employer] EDNE Prakash Carey jb1 Tana Hannah RN RN aa1 Ehsan Jesus LVN LVN em Suma García RN RN iw Juan Jose Rubi RN RN ak1 Juan Mayorga PA PA cp Bee Odom, RN Cheli Levine rg4
[2018-10-02] MEDS ORDERED: TAMSULOSIN 0.4 MG SR CAP ONE (19:17)
[2018-10-02 20:07] VITALS: TEMP 98.7; O2SAT 99
[2018-10-02 20:08] VITALS: BP 154/80
== END 2018-10-02 19:26 | disposition home or self-care (01) ==
LOC: ER 16:31
DX: N20.1 Calculus of ureter (principal); F17.210 Nicotine dependence, cigarettes, uncomplicated
CPT/HCPCS: 36415; 74176; 76377; 80048; 80076; 81003; 81015; 83690; 85025; 96361; 96374; 99284; J7030

== ENCOUNTER 2019-08-24 13:14 | Emergency (ER) | payer SELFPAY ==
--- NOTE | 2019-08-24 14:36 | RAD REPORT ---
EXAM DESCRIPTION: RAD - Chest Single View - 08/24/2019 2:00 pm CLINICAL HISTORY: DYSPNEA Chest pain. COMPARISON: <Comparisons> FINDINGS: Portable technique limits examination quality. The lungs are grossly clear. The heart is normal in size. No displaced fractures. IMPRESSION: No acute intrathoracic process suspected.
[2019-08-24 14:41] LABS: Absolute Lymphocytes (CBC) 2.5 K/uL (0.7-4.9); Basophils % 0.9 % (0-1.3); Hematocrit 46.6 % (39.6-49.0); Lymphocytes % 22.1 % (15.3-44.8); MPV 7.8 fL (7.6-11.3); RBC Red Blood Cell Count 5.07 M/uL (4.33-5.43)
[2019-08-24 14:55] LABS: ALT/SGPT 28 U/L (12-78); Alkaline Phosphatase 63 U/L (45-117); BUN Blood Urea Nitrogen 11 mg/dL (7-18); Bicarbonate 28 mmol/L (21-32); Bilirubin Direct < 0.1 mg/dL (0-0.2); Bilirubin Total 0.3 mg/dL (0.2-1.0); Glucose Level 94 mg/dL (74-106); NT PRO-BNP 62 pg/mL (<125); Protein, Total 7.8 g/dL (6.4-8.2); Sodium Level 140 mmol/L (136-145); Troponin (Emerg Dept Use Only) < 0.02 ng/mL (0.0-0.045)
[2019-08-24] MEDS ORDERED: KETOROLAC 30 MG/ML INJ ONE (15:03)
[2019-08-24 15:23] LABS: AST/SGOT 28 U/L (15-37); Magnesium 1.8 mg/dL (1.8-2.4); Potassium 4.4 mmol/L (3.5-5.1)
[2019-08-24 16:31] VITALS: TEMP 99
[2019-08-24 16:50] VITALS: BP 110/77; O2SAT 98
--- NOTE | 2019-08-25 12:53 | EKG ---
Test Date: 2019-08-24 Test Time: 14:08:48 Teasel Setter: MAXWELL MEASUREMENT RESULTS: Intervals: Rate: 70 UT: 170 QRSD: 118 QT: 376 QTc: 406 [place]: P: 49 UT: 170 QRS: 24 T: 73 INTERPRETIVE STATEMENTS: Normal sinus rhythm Right bundle branch block Abnormal ECG Compared to ECG 11/27/2012 12:21:00 Right bundle-branch block now present Incomplete right bundle-branch block no longer present Electronically Signed On 08-25-19 12:50:38 CDT by Carter Hamilton
--- NOTE | 2019-08-30 13:24 | ER ---
Nurse's Notes [facility] Name: Ozzy Issa Age: 53 yrs Sex: Male : 1965 Arrival Date: 08/24/2019 Time: 13:16 Bed 14 Private MD: Diagnosis: Chest pain, unspecified Presentation: 08/23 13:25 Chief complaint: Patient states: pain started in middle upper back , radiates around to iw front of chest, tender to touch, thinks it might be shingles, has rash under right armpit , started 4 days ago. Coronavirus screen: Proceed with normal triage. Patient denies a cough. Patient denies shortness of breath or difficulty breathing. Patient denies measured and/or subjective temperature greater than 100.4F prior to today's visit. Patient denies travel on a cruise ship or to a country the [facility] currently lists as an affected area. Patient denies contact with known and/or suspected case of COVID-19. Ebola Screen: Patient negative for fever greater than or equal to 101.5 degrees Fahrenheit, and additional compatible Ebola Virus Disease symptoms Patient denies exposure to infectious person. Patient denies travel to an Ebola-affected area in the 21 days before illness onset. No symptoms or risks identified at this time. Initial Sepsis Screen: Does the patient meet any 2 criteria? No. Patient's initial sepsis screen is negative. Does the patient have a suspected source of infection? No. Patient's initial sepsis screen is negative. Risk Assessment: Do you want to hurt yourself or someone else? Patient reports no desire to harm self or others. Onset of symptoms was August 20, 2019. 13:25 Method Of Arrival: Ambulatory iw 13:25 Acuity: FRANCISCO 3 iw Triage Assessment: 13:30 General: Appears in no apparent distress. comfortable, Behavior is calm, cooperative, bp appropriate for age. Pain: Complains of pain in chest. EENT: No deficits noted. Neuro: No deficits noted. Cardiovascular: Rhythm is sinus rhythm. Respiratory: No deficits noted. GI: No signs and/or symptoms were reported involving the gastrointestinal system. : No signs and/or symptoms were reported regarding the genitourinary system. Derm: No deficits noted. Musculoskeletal: No deficits noted. Historical: - Allergies: 13:27 NKA; iw - Home Meds: 13:27 None [Active]; iw - PMHx: 13:27 None; iw - PSHx: 13:27 Hernia repair; iw - Immunization history:: Adult Immunizations. - Social history:: Smoking status: Patient reports the use of cigarette tobacco products, smokes one pack cigarettes per day. Screenin:30 Abuse screen: Denies threats or abuse. Denies injuries from another. Nutritional bp screening: No deficits noted. Tuberculosis screening: No symptoms or risk factors identified. Fall Risk None identified. Assessment: 13:30 General: SEE TRIAGE NOTE. bp 14:59 Reassessment: ALL CURRENT ORDERS COMPLETED. PT ASYMPTOMATIC AT THIS TIME, VS STABLE ON bp MONITOR. 16:14 Reassessment: PT D/C HOME AMBULATORY, DX WITH NONSPECIFIC CHEST PAIN. bp Vital Signs: 13:25 BP 129 / 93; Pulse 89; Resp 16; Temp 99.0; Pulse Ox 99% on R/A; Weight 72.57 kg; Height iw 5 ft. 6 in. (167.64 cm); 14:47 BP 122 / 87; Pulse 70; Resp 16; Pulse Ox 99% ; bp 15:32 BP 110 / 77; Pulse 64; Resp 16; Pulse Ox 98% ; bp 13:25 Body Mass Index 25.82 (72.57 kg, 167.64 cm) iw ED Course: 13:16 Patient arrived in ED. mr 13:27 Triage completed. iw 13:27 Arm band placed on. iw 13:29 Primo Hatch, RN is Primary Nurse. bp 13:30 Patient has correct armband on for positive identification. Bed in low position. Call bp light in reach. Side rails up X2. Pulse ox on. NIBP on. 13:32 Jayce Thomas PA is PHCP. jr8 13:32 Gato Barboza MD is Attending Physician. jr8 14:01 XRAY Chest (1 view) In Process Unspecified. EDMS 14:12 Initial lab(s) drawn, by me, sent to lab. Inserted saline lock: 22 gauge in right kj1 antecubital area, using aseptic technique. Blood collected. 16:14 No provider procedures requiring assistance completed. IV discontinued, intact, bp bleeding controlled, No redness/swelling at site. Pressure dressing applied. Patient maintains SpO2 saturation greater than 95% on room air. Administered Medications: 14:59 Drug: TORadol - Ketorolac 15 mg Route: IVP; Site: right antecubital; bp 15:33 Follow up: Response: No adverse reaction; Pain is decreased bp Outcome: 15:28 Discharge ordered by MD. mccartney 16:14 Discharged to home ambulatory. bp 16:14 Condition: stable 16:14 Discharge instructions given to patient, Instructed on discharge instructions, follow up and referral plans. medication usage, Demonstrated understanding of instructions, follow-up care, medications, Prescriptions given X 2. 16:16 Patient left the ED. bp Signatures: Dispatcher [employer] [facility] Sue Goetz Irene, RN RN Jayce Lu PA PA jr8 Peltier, Brian, RN RN Phyllis Del Valle kj1
--- NOTE | 2019-08-30 13:24 | EDPHYS ---
Physician Documentation [facility] Name: Ozzy Issa Age: 53 yrs Sex: Male : 1965 Arrival Date: 08/24/2019 Time: 13:16 Bed 14 Private MD: ED Physician Gato Barboza HPI: 08/23 14:31 This 53 yrs old Male presents to ER via Ambulatory with complaints of Chest jr8 Pain. 14:31 The patient or guardian reports chest pain that is located primarily in the anterior jr8 chest wall, bilaterally. Onset: acutely, 2 day(s) ago. The pain radiates to back. Associated signs and symptoms: The patient has no apparent associated signs or symptoms. The chest pain is described as sharp. Duration: The patient or guardian reports multiple episodes, that are intermittent, that wax and wane. Modifying factors: The symptoms are alleviated by nothing. the symptoms are aggravated by deep breath, movement, palpation of area. Severity of pain: At its worst the pain was moderate in the emergency department the pain is unchanged. The patient has not experienced similar symptoms in the past. The patient has not recently seen a physician. Historical: - Allergies: 13:27 NKA; iw - Home Meds: 13:27 None [Active]; iw - PMHx: 13:27 None; iw - PSHx: 13:27 Hernia repair; iw - Immunization history:: Adult Immunizations. - Social history:: Smoking status: Patient reports the use of cigarette tobacco products, smokes one pack cigarettes per day. ROS: 14:31 Eyes: Negative for injury, pain, redness, and discharge, ENT: Negative for injury, jr8 pain, and discharge, Neck: Negative for injury, pain, and swelling, Respiratory: Negative for shortness of breath, cough, wheezing, and pleuritic chest pain, Abdomen/GI: Negative for abdominal pain, nausea, vomiting, diarrhea, and constipation, Back: Negative for injury and pain, MS/Extremity: Negative for injury and deformity, Skin: Negative for injury, rash, and discoloration, Neuro: Negative for headache, weakness, numbness, tingling, and seizure. 14:31 Cardiovascular: Positive for chest pain, with movement, Negative for edema, orthopnea, palpitations, paroxysmal nocturnal dyspnea. Exam: 14:31 Eyes: Pupils equal round and reactive to light, extra-ocular motions intact. Lids and jr8 lashes normal. Conjunctiva and sclera are non-icteric and not injected. Cornea within normal limits. Periorbital areas with no swelling, redness, or edema. ENT: Nares patent. No nasal discharge, no septal abnormalities noted. Tympanic membranes are normal and external auditory canals are clear. Oropharynx with no redness, swelling, or masses, exudates, or evidence of obstruction, uvula midline. Mucous membranes moist. Neck: Trachea midline, no thyromegaly or masses palpated, and no cervical lymphadenopathy. Supple, full range of motion without nuchal rigidity, or vertebral point tenderness. No Meningismus. Cardiovascular: Regular rate and rhythm with a normal S1 and S2. No gallops, murmurs, or rubs. Normal PMI, no JVD. No pulse deficits. Respiratory: Lungs have equal breath sounds bilaterally, clear to auscultation and percussion. No rales, rhonchi or wheezes noted. No increased work of breathing, no retractions or nasal flaring. Abdomen/GI: Soft, non-tender, with normal bowel sounds. No distension or tympany. No guarding or rebound. No evidence of tenderness throughout. Back: No spinal tenderness. No costovertebral tenderness. Full range of motion. Skin: Warm, dry with normal turgor. Normal color with no rashes, no lesions, and no evidence of cellulitis. MS/ Extremity: Pulses equal, no cyanosis. Neurovascular intact. Full, normal range of motion. Neuro: Awake and alert, GCS 15, oriented to person, place, time, and situation. Cranial nerves II-XII grossly intact. Motor strength 5/5 in all extremities. Sensory grossly intact. Cerebellar exam normal. Normal gait. 14:31 Chest/axilla: Inspection: normal, Palpation: tenderness, that is mild, of the anterior aspect of right upper chest and anterior aspect of left upper chest, that partially reproduces the patient's complaints. 14:31 ECG was reviewed by the Attending Physician. Vital Signs: 13:25 BP 129 / 93; Pulse 89; Resp 16; Temp 99.0; Pulse Ox 99% on R/A; Weight 72.57 kg; Height iw 5 ft. 6 in. (167.64 cm); 14:47 BP 122 / 87; Pulse 70; Resp 16; Pulse Ox 99% ; bp 15:32 BP 110 / 77; Pulse 64; Resp 16; Pulse Ox 98% ; bp 13:25 Body Mass Index 25.82 (72.57 kg, 167.64 cm) iw MDM: 13:45 Patient medically screened. 15: Data reviewed: vital signs, nurses notes, lab test result(s), EKG, radiologic studies, plain films, and as a result, I will discharge patient. Data interpreted: Pulse oximetry: on room air is 99 %. Interpretation: normal. Counseling: I had a detailed discussion with the patient and/or guardian regarding: the historical points, exam findings, and any diagnostic results supporting the discharge/admit diagnosis, lab results, radiology results, the need for outpatient follow up, a family practitioner, to return to the emergency department if symptoms worsen or persist or if there are any questions or concerns that arise at home. ED course: Patient reproducible upon palpation and with deep breath. No ECG or blood work findings. Most likely muscle in nature. Told to f/u with PCP. If worse to come back for reevaluation. Patient good with this and feeling better. 08/23 13:46 Order name: Basic Metabolic Panel; Complete Time: 15:28 08/23 13:46 Order name: CBC with Diff; Complete Time: 14:45 08/23 13:46 Order name: LFT's; Complete Time: 15:08/23 13:46 Order name: Magnesium; Complete Time: 15:28 08/23 13:46 Order name: NT PRO-BNP; Complete Time: 15:28 08/23 13:46 Order name: PT-INR; Complete Time: 14:39 08/23 13:46 Order name: Troponin (emerg Dept Use Only); Complete Time: 15:28 08/23 13:46 Order name: XRAY Chest (1 view); Complete Time: 14:39 08/23 13:46 Order name: EKG; Complete Time: 13:47 08/23 13:46 Order name: Cardiac monitoring; Complete Time: 14:44 08/23 13:46 Order name: EKG - Nurse/Tech; Complete Time: 14:44 08/23 13:46 Order name: IV Saline Lock; Complete Time: 14:44 08/23 13:46 Order name: Labs collected and sent; Complete Time: 14:44 08/23 13:46 Order name: O2 Per Protocol; Complete Time: 48 08/23 13:46 Order name: O2 Sat Monitoring; Complete Time: EC:31 Rate is 70 beats/min. Rhythm is regular, Normal Sinus Rhythm. QRS [place] is Normal. [place] jr8 interval is normal at 170 msec. QRS interval is normal at 118 msec. QT interval is normal at 406 msec. No Q waves. T waves are Inverted in leads aVL, V1. T waves are Flattened in lead V2. No ST changes noted. Clinical impression: NSR w/ Non-specific ST/T Changes. Interpreted by me. Reviewed by me. Administered Medications: 14:59 Drug: TORadol - Ketorolac 15 mg Route: IVP; Site: right antecubital; bp 15:33 Follow up: Response: No adverse reaction; Pain is decreased bp Disposition: 16:21 Co-signature as Attending Physician, Gato Barboza MD. rn Disposition: 08/24/19 15:28 Discharged to Home. Impression: Chest pain, unspecified. - Condition is Stable. - Discharge Instructions: Nonspecific Chest Pain, Chest Wall Pain. - Prescriptions for Ibuprofen 800 mg Oral Tablet - take 1 tablet by ORAL route every 8 hours As needed take with food; 30 tablet. Medrol (Domenic) 4 mg Oral Tablets, Dose Pack - take 1 tablet by ORAL route as directed - follow package instructions; 1 packet. - Medication Reconciliation Form, Thank You Letter, Antibiotic Education, Prescription Opioid Use form. - Follow up: Private Physician; When: 5 - 6 days; Reason: Recheck today's complaints, Continuance of care, Re-evaluation by your physician. - Problem is new. - Symptoms have improved. Signatures: Dispatcher [employer] Suma Pino RN RN iw Nieto, Roman, MD MD rn Roszak, Josh, PA PA jr8 Primo Hatch RN RN bp Corrections: (The following items were deleted from the chart) 16:16 15:28 08/24/2019 15:28 Discharged to Home. Impression: Chest pain, unspecified. bp Condition is Stable. Forms are Medication Reconciliation Form, Thank You Letter, Antibiotic Education, Prescription Opioid Use. Follow up: Private Physician; When: 5 - 6 days; Reason: Recheck today's complaints, Continuance of care, Re-evaluation by your physician. Problem is new. Symptoms have improved. jr8
== END 2019-08-24 16:16 | disposition home or self-care (01) ==
LOC: ER 13:14
DX: R07.9 Chest pain, unspecified (principal); F17.210 Nicotine dependence, cigarettes, uncomplicated
CPT/HCPCS: 36415; 71045; 80048; 80076; 83735; 83880; 84484; 85025; 85610; 93005; 96374; 99285

== ENCOUNTER 2020-05-29 10:00 | Emergency (ER) | payer SELFPAY ==
[2020-05-29 10:26] LABS: Urine Blood NEGATIVE (NEG); Urine Glucose NEGATIVE (NEG); Urine Protein NEGATIVE (NEG)
[2020-05-29 10:32] LABS: Urine Bacteria <20 /HPF (NONE SEEN); Urine RBC <5 /HPF (NONE SEEN)
[2020-05-29 10:39] LABS: Absolute Lymphocytes (CBC) 2.1 K/uL (0.7-4.9); Basophils % 0.7 % (0-1.3); Hematocrit 46.6 % (39.6-49.0); Lymphocytes % 28.9 % (15.3-44.8); MPV 7.3 fL (7.6-11.3); RBC Red Blood Cell Count 5.08 M/uL (4.33-5.43)
[2020-05-29 11:07] LABS: Potassium 4.3 mmol/L (3.5-5.1)
[2020-05-29] MEDS ORDERED: KETOROLAC 30 MG/ML INJ ONE (11:15)
--- NOTE | 2020-05-29 11:20 | RAD REPORT ---
EXAM DESCRIPTION: CT - Stone Protocol - 05/29/2020 10:38 am CLINICAL HISTORY: FLANK PAIN COMPARISON: Stone Protocol dated 10/02/2018 TECHNIQUE: Axial 5 mm thick images were obtained without oral or IV contrast. The [id number]-[id number] span s the entirety of the system including uppermost abdomen and lung bases. All CT scans are performed using dose optimization technique as appropriate and may include automated exposure control or mA/KV adjustment according to patient size. FINDINGS: No hydronephrosis is present and no obstructing ureteral calculi. No suspicious renal mass es. Isodense masses and pyelonephritis are not excluded on a stone protocol CT scan. No significant a drenal finding. No urinary bladder suspicious finding. No prostate gland or seminal vesicle abnormali ty. Imaged portions of the liver, spleen and pancreas show no suspicious findings on non-contrast imaging . No gallbladder or biliary tree abnormality identified. No suspicious bowel findings. No mass or bulky lymphadenopathy. Fat extends into the origin of each inguinal canal similar to 2019. No free air, free fluid or inflammatory stranding. No significant bony abnormality. IMPRESSION: No hydronephrosis, obstructing calculus or acute finding identifiable. Isodense masses and pyelonephritis are not excluded on stone protocol technique. No acute GI findings seen. No acute finding to explain left-sided abdominal or flank pain.
--- NOTE | 2020-05-29 11:26 | EDPHYS ---
Physician Documentation [facility] Name: Ozzy Issa Age: 54 yrs Sex: Male : 1965 Arrival Date: 05/29/2020 Time: 10:02 Bed 8 Private MD: ED Physician Gato Barboza HPI: 05/29 11:24 This 54 yrs old Male presents to ER via Ambulatory with complaints of Side kb Pain. 11:24 The patient complains of pain in the left flank. The pain radiates to the left lower kb quadrant. The patient has not experienced similar symptoms in the past. The patient has not recently seen a physician. 11:24 Onset: The symptoms/episode began/occurred 4 day(s) ago. Modifying factors: The kb symptoms are alleviated by nothing. the symptoms are aggravated by palpation/percussion. Associated signs and symptoms: Pertinent positives: dysuria, Pertinent negatives: diarrhea, dizziness, fever, urinary frequency, headache, hematuria, nausea, pain radiating to the lower extremities, vomiting. Severity of pain: At its worst the pain was moderate in the emergency department the pain is unchanged. Historical: - Allergies: 10:11 NKA; ca1 - Home Meds: 10:11 None [Active]; ca1 - PMHx: 10:11 Kidney stones; ca1 - PSHx: 10:11 Hernia repair; ca1 - Immunization history:: Flu vaccine is up to date. - Social history:: Smoking status: Patient reports the use of cigarette tobacco products, smokes one pack cigarettes per day. ROS: 11:22 Constitutional: Negative for fever, chills, and weight loss, Cardiovascular: Negative kb for chest pain, palpitations, and edema, Respiratory: Negative for shortness of breath, cough, wheezing, and pleuritic chest pain, MS/Extremity: Negative for injury and deformity, Skin: Negative for injury, rash, and discoloration, Neuro: Negative for headache, weakness, numbness, tingling, and seizure. 11:22 Abdomen/GI: Positive for abdominal pain, nausea, Negative for vomiting, diarrhea. 11:22 Back: Positive for flank pain, on the left, radiated pain. 11:22 : Positive for flank pain, burning with urination. Exam: 11:23 Constitutional: This is a well developed, well nourished patient who is awake, alert, kb and in no acute distress. Head/Face: Normocephalic, atraumatic. Cardiovascular: Regular rate and rhythm with a normal S1 and S2. No gallops, murmurs, or rubs. Normal PMI, no JVD. No pulse deficits. Respiratory: Lungs have equal breath sounds bilaterally, clear to auscultation and percussion. No rales, rhonchi or wheezes noted. No increased work of breathing, no retractions or nasal flaring. Skin: Warm, dry with normal turgor. Normal color with no rashes, no lesions, and no evidence of cellulitis. MS/ Extremity: Pulses equal, no cyanosis. Neurovascular intact. Full, normal range of motion. Neuro: Awake and alert, GCS 15, oriented to person, place, time, and situation. Cranial nerves II-XII grossly intact. Motor strength 5/5 in all extremities. Sensory grossly intact. Cerebellar exam normal. Normal gait. 11:23 Abdomen/GI: Inspection: abdomen appears normal, Bowel sounds: normal, Palpation: soft, in all quadrants, mild abdominal tenderness, in the left lower quadrant. 11:23 Back: CVA tenderness, that is mild, is noted on the left. Vital Signs: 10:08 BP 136 / 90; Pulse 74; Resp 16 S; Temp 97.2(TE); Pulse Ox 97% on R/A; Weight 70.31 kg ca1 (R); Height 5 ft. 6 in. (167.64 cm) (R); Pain 9/10; 11:00 BP 121 / 84; Pulse 78; Resp 15; Pulse Ox 97% ; jl7 10:08 Body Mass Index 25.02 (70.31 kg, 167.64 cm) ca1 MDM: 10:11 Patient medically screened. kb 11:22 Data reviewed: vital signs, nurses notes. Data interpreted: Pulse oximetry: on room air kb is 97 %. Interpretation: normal. 11:24 Counseling: I had a detailed discussion with the patient and/or guardian regarding: the kb historical points, exam findings, and any diagnostic results supporting the discharge/admit diagnosis, lab results, radiology results, the need for outpatient follow up, a family practitioner, to return to the emergency department if symptoms worsen or persist or if there are any questions or concerns that arise at home. 05/29 10:12 Order name: Urine Microscopic Only kb 05/29 10:12 Order name: Urine Microscopic Only; Complete Time: 10:39 EDMS 05/29 10:12 Order name: Basic Metabolic Panel kb 05/29 10:12 Order name: CBC with Diff; Complete Time: 10:50 kb 05/29 10:13 Order name: Basic Metabolic Panel; Complete Time: 11:09 EDMS 05/29 10:24 Order name: Urine Dipstick--Ancillary (enter results); Complete Time: 10:26 em1 05/29 10:12 Order name: Urine Dipstick-Ancillary (obtain specimen); Complete Time: 10:19 kb 05/29 10:12 Order name: IV Saline Lock; Complete Time: 10:32 kb 05/29 10:12 Order name: Labs collected and sent; Complete Time: 10:32 kb 05/29 10:12 Order name: CT Stone Protocol; Complete Time: 11:22 kb Administered Medications: 11:00 Drug: TORadol 30 mg Route: IVP; Site: right antecubital; [facility] 11:25 Follow up: Response: No adverse reaction; Pain is decreased jl7 Disposition: 16:07 Co-signature as Attending Physician, Gato Barboza MD. rn Disposition: 05/29/20 11:25 Discharged to Home. Impression: Left Flank Pain, Dysuria. - Condition is Stable. - Discharge Instructions: Dysuria, Flank Pain, Csmy-mu-Kakw. - Prescriptions for Diclofenac Sodium 75 mg Oral Tablet, Delayed Release (E.C.) - take 1 tablet by ORAL route 2 times per day As needed; 30 tablet. - Medication Reconciliation Form, Thank You Letter, Antibiotic Education, Prescription Opioid Use form. - Follow up: Emergency Department; When: As needed; Reason: Worsening of condition. Follow up: Private Physician; When: 2 - 3 days; Reason: Recheck today's complaints, Continuance of care, Re-evaluation by your physician. Signatures: Dispatcher [employer] Alexandra Gruber, ARMORED SERVICE TECHNICIAN-C ARMORED SERVICE TECHNICIAN-Gato Cabrera MD MD rn Leal, Jahala, RN RN jl7 Kathryn Angel RN RN ca1 Corrections: (The following items were deleted from the chart) 11:41 11:25 05/29/2020 11:25 Discharged to Home. Impression: Left Flank Pain; Dysuria. jl7 Condition is Stable. Forms are Medication Reconciliation Form, Thank You Letter, Antibiotic Education, Prescription Opioid Use. Follow up: Emergency Department; When: As needed; Reason: Worsening of condition. Follow up: Private Physician; When: 2 - 3 days; Reason: Recheck today's complaints, Continuance of care, Re-evaluation by your physician. kb
--- NOTE | 2020-05-29 11:26 | ER ---
Nurse's Notes [facility] Name: Ozzy Issa Age: 54 yrs Sex: Male : 1965 Arrival Date: 05/29/2020 Time: 10:02 Bed 8 Private MD: Diagnosis: Left Flank Pain;Dysuria Presentation: 05/29 10:08 Chief complaint: Patient states: L side pain all the way around, and L lower back x 3 - ca1 4 days. Reports burning with urination, urinary urgency and frequency. Denies fever. Reports HX of kidney stone. Coronavirus screen: Client denies travel out of the [place] in the last 14 days. At this time, the client does not indicate any symptoms associated with coronavirus-19. Ebola Screen: Patient negative for fever greater than or equal to 101.5 degrees Fahrenheit, and additional compatible Ebola Virus Disease symptoms Patient denies exposure to infectious person. Patient denies travel to an Ebola-affected area in the 21 days before illness onset. No symptoms or risks identified at this time. Initial Sepsis Screen: Does the patient meet any 2 criteria? No. Patient's initial sepsis screen is negative. Does the patient have a suspected source of infection? No. Patient's initial sepsis screen is negative. Risk Assessment: Do you want to hurt yourself or someone else? Patient reports no desire to harm self or others. Onset of symptoms was May 26, 2020. 10:08 Method Of Arrival: Ambulatory ca1 10:08 Acuity: FRANCISCO 3 ca1 Historical: - Allergies: 10:11 NKA; ca1 - Home Meds: 10:11 None [Active]; ca1 - PMHx: 10:11 Kidney stones; ca1 - PSHx: 10:11 Hernia repair; ca1 - Immunization history:: Flu vaccine is up to date. - Social history:: Smoking status: Patient reports the use of cigarette tobacco products, smokes one pack cigarettes per day. Screenin:26 Abuse screen: Denies threats or abuse. Nutritional screening: No deficits noted. jl7 Tuberculosis screening: No symptoms or risk factors identified. Fall Risk None identified. Assessment: 10:26 General: Appears in no apparent distress. uncomfortable, Behavior is calm, cooperative. jl7 Pain: Complains of pain in abdomen, left side Pain radiates to back Pain currently is 9 out of 10 on a pain scale. Pain began 2-3 days ago. Neuro: No deficits noted. Cardiovascular: No deficits noted. Respiratory: No deficits noted. GI: Abdomen is round non-distended, Abdomen is tender to palpation Reports. : Reports burning with urination, cramping, pain urinary frequency. EENT: No deficits noted. Derm: No deficits noted. Musculoskeletal: No deficits noted. 11:25 Reassessment: Patient appears in no apparent distress at this time. Pt reports slight jl7 decrease in pain level, rated 8/10 at this time. ERP at bedside discussing results and POC. Vital Signs: 10:08 BP 136 / 90; Pulse 74; Resp 16 S; Temp 97.2(TE); Pulse Ox 97% on R/A; Weight 70.31 kg ca1 (R); Height 5 ft. 6 in. (167.64 cm) (R); Pain 9/10; 11:00 BP 121 / 84; Pulse 78; Resp 15; Pulse Ox 97% ; jl7 10:08 Body Mass Index 25.02 (70.31 kg, 167.64 cm) ca1 ED Course: 10:02 Patient arrived in ED. ds1 10:10 Triage completed. ca1 10:11 Alex[facility] Whittaker [facility]C [facility] kb 10:11 Gato Barboza MD is Attending Physician. kb 10:11 Arm band placed on right wrist. ca1 10:15 Radha Acuna, TAMI is Primary Nurse. jl7 10:19 Urine Microscopic Only Sent. ca1 10:26 Patient has correct armband on for positive identification. Bed in low position. Call jl7 light in reach. 10:26 Initial lab(s) drawn, by ky, sent to lab. Urine collected: clean catch specimen. jl7 Inserted saline lock: 20 gauge in right antecubital area, using aseptic technique. Blood collected. 10:38 CT Stone Protocol In Process Unspecified. EDMS 11:40 No provider procedures requiring assistance completed. IV discontinued, intact, jl7 bleeding controlled, No redness/swelling at site. Pressure dressing applied. Administered Medications: 11:00 Drug: TORadol 30 mg Route: IVP; Site: right antecubital; jl7 11:25 Follow up: Response: No adverse reaction; Pain is decreased jl7 Outcome: 11:25 Discharge ordered by . kb 11:40 Discharged to home ambulatory. jl7 11:40 Condition: stable 11:40 Discharge instructions given to patient, Instructed on discharge instructions, follow up and referral plans. medication usage, Demonstrated understanding of instructions, follow-up care, medications, Prescriptions given X 1. 11:41 Patient left the ED. jl7 Signatures: Dispatcher [employer] [facility] Guillermo Whittakeristin, DEPUTY CITY CLERK-C DEPUTY CITY CLERK-Ckb Amber Simon ds1 Radha Acuna RN RN jl7 Kathryn Angel RN RN ca1 Corrections: (The following items were deleted from the chart) 10: 10:26 General: Appears in no apparent distress. uncomfortable, melisa7 jl7 10:30 10:26 General: Appears in no apparent distress. uncomfortable, sade jl7 10:30 10:26 Pain: Complains of pain in abdomen, left side Pain radiates to back Pain jl7 currently is 9 out of 10 on a pain scale. jl7
[2020-05-29 13:57] VITALS: BP 121/84; O2SAT 97
[2020-05-29 13:58] VITALS: TEMP 97.2
== END 2020-05-29 11:41 | disposition home or self-care (01) ==
LOC: ER 10:00
DX: R30.0 Dysuria (principal); F17.210 Nicotine dependence, cigarettes, uncomplicated
CPT/HCPCS: 36415; 74176; 76377; 80048; 81003; 81015; 85025; 96374; 99284

== ENCOUNTER 2024-04-03 09:19 | Emergency (ER) | payer OTHER ==
[2024-04-03 09:57] LABS: Absolute Basophils 0.1 K/uL (0-0.5); Absolute Eosinophils 0.1 K/uL (0-0.5); Absolute Lymphocytes (CBC) 2.5 K/uL (0.7-4.9); Absolute Monocytes 0.7 K/uL (0.1-1.3); Absolute Neutrophil 5.3 K/uL (1.8-8.0); Basophils % 0.7 % (0-1.3); Eosinophils % 0.7 % (0-4.4); Hematocrit 46.8 % (39.6-49.0); Hemoglobin 15.8 g/dL (13.6-17.9); MCH 31.8 pg (27.0-35.0); MCHC 33.8 g/dL (32.0-36.0); MPV 6.7 fL (7.6-11.3); Monocytes % 8.2 % (3.3-12.3); Neutrophils % 61.4 % (41.7-73.7); Nucleated Red Blood Cells % 0.1 % (0-0); Platelets 311 thou/uL (152-406); RBC Red Blood Cell Count 4.98 M/uL (4.33-5.43); Red Cell Distribution Width 13.3 % (12.1-15.2)
[2024-04-03 10:03] LABS: Sqamous Epithelial None Seen /HPF (None Seen); Urine Bacteria None Seen /HPF (<20); Urine Culture Reflex Order NOT NEEDED; Urine RBC <5 /HPF (None Seen); Urine WBC None Seen /HPF (<5)
[2024-04-03 10:04] LABS: Specific Gravity 1.014 (1.005-1.030); Urine Bilirubin NEGATIVE (Negative); Urine Blood Negative (Negative); Urine Clarity Clear (Clear); Urine Color Light-Yellow (Yellow); Urine Glucose NEGATIVE (Negative); Urine Ketones NEGATIVE (Negative); Urine Micro Reflex YN NO BILL NO MICROSCOPIC; Urine Nitrite NEGATIVE (Negative); Urine Protein NEGATIVE (Negative); Urine Urobilinogen Normal (Normal)
[2024-04-03] MEDS ORDERED: KETOROLAC 30 MG/ML INJ ONE (10:18)
[2024-04-03 10:43] LABS: Albumin 3.9 g/dL (3.4-5.0); Albumin/Globulin Ratio 1.1 (1.1-1.8); Anion Gap 8.2 mEq/L (5.0-15.0); Bilirubin Total 0.3 mg/dL (0.2-1.0); Globulin 3.7 g/dL (2.3-3.5); Potassium 4.2 mEq/L (3.5-5.1); Protein, Total 7.6 g/dL (6.4-8.2); Troponin High Sensitivity 3.1 pg/mL (<58.9)
--- NOTE | 2024-04-03 11:08 | RAD REPORT ---
EXAMINATION: CT ABDOMEN AND PELVIS WITH CONTRAST CLINICAL INDICATION: abd distention and pain TECHNIQUE: CT abdomen and pelvis was performed, after the administration of IV contrast[facility] Axial, sagittal and coronal reconstructions were obtained. One or more of the following dose reduction techniques were used: Automated exposure control, adjustment of the mA and k V according to patient size, and iterative reconstruction. Unless otherwise specified, incidental findings do not require dedicated imaging follow-up. COMPARISON: 05/29/2020 FINDINGS: LOWER CHEST: The visualized lung bases are clear. LIVER: Mild fatty liver is present. No focal lesion or biliary dilatation is seen. Small 15 mm enhan cing lesion in the right lobe of the liver posteriorly likely flash filling hemangioma. No aggressive lesions seen. Small 7 mm cyst left lobe liver. Grossly unremarkable gallbladder. SPLEEN: Normal size. No focal lesion. PANCREAS: No mass, ductal dilation, or gavino-pancreatic fluid. ADRENALS: Normal; no mass. KIDNEYS: Normal size and contour. No hydronephrosis. GASTROINTESTINAL TRACT: No evidence of free air, significant intra-abdominal free fluid, bowel obstru ction or abscess. APPENDIX: Normal appendix. LYMPH NODES: No lymphadenopathy. MUSCULOSKELETAL: Mild multilevel spinal degenerative changes. ADDITIONAL FINDINGS: None. IMPRESSION: No acute or concerning abnormalities seen in the abdomen or pelvis. Fatty liver.
--- NOTE | 2024-04-03 11:17 | EDPHYS ---
Physician Documentation [facility] Name: Ozzy Issa Age: 58 yrs Sex: Male : 1965 Arrival Date: 04/03/2024 Time: 09:19 Bed 8 Private MD: ED Physician Surendra Stack HPI: 04/03 09:35 This 58 yrs old Male presents to ER via Unassigned with complaints of ec2 Abdominal Swelling, Abdominal Pain, Flank Pain. 09:35 Patient arrives today for abdominal distention and soft tissue swelling. Reports that ec2 he did notice some abdominal distention. Reports history of alcohol use however has not drank in 8 years. Patient reports some abdominal discomfort. Reports no nausea or vomiting. Reports no difficulty breathing or chest pain. Patient reports general abdominal tenseness. Patient reports no lower extremity edema. No cardiac disease, no known liver disease.. Historical: - Allergies: 09:37 NKA; kc6 - PMHx: 09:37 Kidney stones; Hypercholesterolemia; kc6 - PSHx: 09:37 hernia repair; kc6 - Immunization history:: Adult Immunizations up to date. - Infectious Disease History:: Denies. - Social history:: Smoking status: Patient/guardian denies using tobacco, Stopped _ months ago 3. ROS: 09:35 Constitutional: as per hpi ec2 Exam: 09:35 Constitutional: GEN: NAD Head: atraumatic Eyes: EOMI Ears: External ears are ec2 normal. CV: regular rate LUNGS: no respiratory distress ABD: Abdominal distention with soft tissue swelling appreciated throughout the abdomen and back. SKIN: no evidence of rashes MSK: no evidence of trauma Vital Signs: 09:36 BP 138 / 93; Pulse 68; Resp 17 S; Temp 98(O); Pulse Ox 98% on R/A; Weight 76.2 kg (M); kc6 Height 5 ft. 6 in. (R); 10:00 BP 110 / 67; Pulse 67; Resp 15; Pulse Ox 100% ; Pain 8/10; cm10 11:16 BP 134 / 88; Pulse 57; Resp 15; Pulse Ox 97% on R/A; Pain 3/10; cm10 09:36 Body Mass Index 27.12 (76.20 kg, 167.64 cm) [facility] 10:00 Pain Scale: Adult cm10 11:16 Pain Scale: Adult cm10 MDM: 09:25 Medical Screening Exam initiated ec2 09:37 Data reviewed: vital signs, nurses notes. ED course: Patient arrives today for ec2 evaluation of abdominal distention and soft tissue swelling. Examination yields abdominal findings as above. Will obtain lab work, CT imaging. Differential diagnoses include processes such as liver cirrhosis, cardiac disease, intra-abdominal mass.. 09:43 ED course: EKG independently reviewed and interpreted by me, shows normal sinus rhythm, ec2 rate of 61, no acute ST segment elevations, intervals are nonactionable.. 11:16 ED course: CT imaging nonacute. Will discharge home have patient follow-up PCP.. ec2 04/03 09:34 Order name: CBC with Diff; Complete Time: 10:13 ec2 04/03 09:34 Order name: CMP; Complete Time: 10:45 ec2 04/03 09:34 Order name: BNP; Complete Time: 10:45 ec2 04/03 09:34 Order name: Troponin High Sensitivity; Complete Time: 10:45 ec2 04/03 09:35 Order name: UAM; Complete Time: 10:13 ec2 04/03 09:34 Order name: CT Abd/Pelvis - IV Contrast Only; Complete Time: 11:16 ec2 04/03 09:34 Order name: IV Saline Lock; Complete Time: 09:52 ec2 04/03 09:34 Order name: Labs collected and sent; Complete Time: 09:52 ec2 04/03 09:34 Order name: EKG - Nurse/Tech; Complete Time: 09:52 ec2 04/03 10:07 Order name: Labs - recollect needed: recollect green top/ hemolyzed per Melanie; eb Complete Time: 10:15 Administered Medications: 10:22 Drug: Ketorolac IVP 15 mg IVP once Route: IVP; Site: right antecubital; cm10 11:13 Follow up: Response: No adverse reaction; Pain is decreased cm10 Disposition Summary: 04/03/24 11:16 Discharge Ordered Notes: Location: Home ec2 Condition: Stable ec2 Diagnosis - Abdominal distension (gaseous) ec2 Followup: ec2 - With: Private Physician - When: - Reason: Re-evaluation by your physician Discharge Instructions: - Discharge Summary Sheet ec2 - Abdominal Pain, Adult ec2 Forms: - Medication Reconciliation Form ec2 - Antibiotic Education ec2 - Prescription Opioid Use ec2 - Patient Portal Instructions ec2 - Leadership Thank You Letter ec2 Signatures: Dispatcher [employer] Roxanne Gates Kaitlyn, RN RN kc6 Nayeli Leo RN RN cm10 Surendra Stack MD MD ec2
--- NOTE | 2024-04-03 11:17 | ER ---
Nurse's Notes [facility] Name: Ozzy Issa Age: 58 yrs Sex: Male : 1965 Arrival Date: 04/03/2024 Time: 09:19 Bed 8 Private MD: Diagnosis: Abdominal distension (gaseous) Presentation: 04/03 09:36 Chief complaint: Patient states: left flank/back pain x2 days with nausea. denies kc6 vomiting or diarrhea. states, "my abdomen doesn't normally look like this.". Coronavirus screen: At this time, the client does not indicate any symptoms associated with coronavirus-19. Ebola Screen: No symptoms or risks identified at this time. Initial Sepsis Screen: Does the patient meet any 2 criteria? No. Patient's initial sepsis screen is negative. Does the patient have a suspected source of infection? No. Patient's initial sepsis screen is negative. Risk Assessment: Do you want to hurt yourself or someone else? Patient reports no desire to harm self or others. Onset of symptoms was April 03, 2024. 09:36 Method Of Arrival: Ambulatory [facility] 09:36 Acuity: FRANCISCO 3 kc6 Historical: - Allergies: 09:37 NKA; kc6 - PMHx: 09:37 Kidney stones; Hypercholesterolemia; kc6 - PSHx: 09:37 hernia repair; kc6 - Immunization history:: Adult Immunizations up to date. - Infectious Disease History:: Denies. - Social history:: Smoking status: Patient/guardian denies using tobacco, Stopped _ months ago 3. Screenin:38 [facility] ED Fall Risk Assessment (Adult) History of falling in the last 3 months, kc6 including since admission No falls in past 3 months (0 pts) Confusion or Disorientation No (0 pts) Intoxicated or Sedated No (0 pts) Impaired Gait No (0 pts) Mobility Assist Device Used No (0 pt) Altered Elimination No (0 pt) Score/Fall Risk Level 0 - 2 = Low Risk Oriented to surroundings, Maintained a safe environment, Educated pt \\T\\ family on fall prevention, incl call for assistance when getting out of bed. Abuse screen: Denies threats or abuse. Denies injuries from another. Nutritional screening: No deficits noted. Tuberculosis screening: No symptoms or risk factors identified. Assessment: 09:52 General: Appears in no apparent distress. comfortable, well groomed, well developed, kc6 Behavior is calm, cooperative, appropriate for age. Pain: Complains of pain in anterior aspect of left lateral abdomen, posterior aspect of left lateral abdomen and left lower quadrant. Neuro: Level of Consciousness is awake, alert, obeys commands, Oriented to person, place, time, situation, Appropriate for age. Cardiovascular: Denies chest pain, shortness of breath, Capillary refill < 3 seconds. Respiratory: Airway is patent Trachea midline Respiratory effort is even, unlabored, Respiratory pattern is regular, symmetrical. GI: Abdomen is round Bowel sounds present X 4 quads. Abd is soft and non tender X 4 quads. Reports lower abdominal pain, bloating, nausea, Patient currently denies diarrhea, vomiting. : No signs and/or symptoms were reported regarding the genitourinary system. Urine is clear. EENT: No signs and/or symptoms were reported regarding the EENT system. Derm: No signs and/or symptoms reported regarding the dermatologic system. Skin is intact, is healthy with good turgor, Skin is pink, warm \\T\\ dry. Musculoskeletal: Circulation, motion, and sensation intact. Range of motion: intact in all extremities. 10:13 General: Appears in no apparent distress. comfortable, Behavior is calm, cooperative, cm10 Assumed care of patient at this time. Pt resting on stretcher call light in reach. Pt reports left sided flank pain rated an 8. Provider made aware. Pt A\\T\\Ox4, respirations even and unlabored. Pt updated on plan of care.. 10:25 Pain: Complains of pain in left flank Pain currently is 8 out of 10 on a pain scale. cm10 Neuro: No deficits noted. Level of Consciousness is awake, alert, obeys commands, Oriented to person, place, time, situation, Appropriate for age. Respiratory: No deficits noted. Airway is patent Respiratory effort is even, unlabored, Respiratory pattern is regular, symmetrical. GI: Reports bloating, nausea. 11:16 Reassessment: Patient appears in no apparent distress at this time. Patient and/or cm10 family updated on plan of care and expected duration. Pain level reassessed. Patient is alert, oriented x 3, equal unlabored respirations, skin warm/dry/pink. Patient states feeling better. Patient states symptoms have improved. Vital Signs: 09:36 BP 138 / 93; Pulse 68; Resp 17 S; Temp 98(O); Pulse Ox 98% on R/A; Weight 76.2 kg (M); kc6 Height 5 ft. 6 in. (R); 10:00 BP 110 / 67; Pulse 67; Resp 15; Pulse Ox 100% ; Pain 8/10; cm10 11:16 BP 134 / 88; Pulse 57; Resp 15; Pulse Ox 97% on R/A; Pain 3/10; cm10 09:36 Body Mass Index 27.12 (76.20 kg, 167.64 cm) kc6 10:00 Pain Scale: Adult cm10 11:16 Pain Scale: Adult cm10 ED Course: 09:23 Patient arrived in ED. sj2 09:24 Surendra Stack MD is Attending Physician. ec2 09:28 Lana Daniels, RN is Primary Nurse. kc6 09:37 Triage completed. kc6 09:37 Arm band placed on. kc6 09:38 Patient has correct armband on for positive identification. Placed in gown. Bed in low kc6 position. Call light in reach. Side rails up X 1. Pulse ox on. NIBP on. Door closed. Noise minimized. Lights dimmed. Pillow given. 09:38 Patient maintains SpO2 saturation greater than 95% on room air. kc6 09:52 Initial lab(s) drawn, by me, sent to lab. Urine collected: clean catch specimen, clear. kc6 Inserted saline lock: 20 gauge in right antecubital area, using aseptic technique. Blood collected. Flushed with 10 mL NS. 09:54 Warm blanket given. kc6 10:04 Report given to Nayeli Leo RN. kc6 10:14 Lab(s) recollected, by me, sent to lab. cm10 10:22 Primary Nurse role handed off by Lana Daniels, RN cm10 10:22 Nayeli Leo, RN is Primary Nurse. cm10 11:01 CT Abd/Pelvis - IV Contrast Only In Process Unspecified. EDMS 11:20 Provided Education on: Follow-up.. cm10 11:20 No provider procedures requiring assistance completed. IV discontinued, intact, cm10 bleeding controlled, No redness/swelling at site. Pressure dressing applied. Administered Medications: 10:22 Drug: Ketorolac IVP 15 mg IVP once Route: IVP; Site: right antecubital; cm10 11:13 Follow up: Response: No adverse reaction; Pain is decreased cm10 Medication: 10:14 VIS not applicable for this client. cm10 Outcome: 11:16 Discharge ordered by . ec2 11:20 Discharged to home ambulatory, cm10 11:20 Condition: good 11:20 Discharge instructions given to patient, Instructed on discharge instructions, follow up and referral plans. Demonstrated understanding of instructions, follow-up care, 11:20 Patient left the ED. cm10 Signatures: Dispatcher [employer] Lana Shrestha RN RN kc6 Nayeli Leo RN RN cm10 Surendra Stack MD MD ec2 Larissa Martinez2 Corrections: (The following items were deleted from the chart) 10:26 10:13 General: Assumed care of patient at this time. Pt resting on stretcher call light cm10 in reach. Pt reports left sided flank pain rated an 8. Provider made aware. Pt A\\T\\Ox4, respirations even and unlabored. Pt updated on plan of care.. cm10
[2024-04-03 11:32] VITALS: TEMP 98
[2024-04-03 11:46] VITALS: BP 134/88; O2SAT 97
--- NOTE | 2024-04-12 11:18 | EKG ---
Test Date: 2024-04-03 Test Time: 09:41:49 [place] Equipment Repairer: ANDREW MEASUREMENT RESULTS: Intervals: Rate: 61 OH: 176 QRSD: 122 QT: 400 QTc: 402 [place]: P: 62 OH: 176 QRS: 42 T: 69 INTERPRETIVE STATEMENTS: Normal sinus rhythm Normal ECG Compared to ECG 08/24/2019 14:08:48 Right bundle-branch block no longer present Electronically Signed On 04-12-24 11:04:53 [employer] by Rupert Renteria
== END 2024-04-03 11:20 | disposition home or self-care (01) ==
LOC: ER 09:19
DX: R14.0 Abdominal distension (gaseous) (principal); Z87.442 Personal history of urinary calculi
CPT/HCPCS: 93005; 85025; 81001; 36415; 84484; 80053; 83880; 74177; 96374; 99284; Q9967